=== PATIENT | male | born 1940 | race Caucasian/White ===

== ENCOUNTER 2018-01-03 00:03 | Emergency (ER) | payer MEDICARE ==
[~2018-01-03] VITALS: Ht 182.9 cm; Wt 88.5 kg
[2018-01-03] MEDS ORDERED: MELO15TA13 PO (00:25)
[2018-01-03] MEDS ORDERED: CARI350T PO (00:25)
[2018-01-03] MEDS ORDERED: TRAZ-182 PO (00:25)
[2018-01-03] MEDS ORDERED: HYDR-4354 PO (00:25)
--- NOTE | 2018-01-03 01:01 | NUR ---
DR. CULP AT BEDSIDE FOR MSE.
[2018-01-03 01:21] LABS: BASOPHILS % (AUTO) 0.5 % (0.0-2.0); EOSINOPHILS # (AUTO) 0.4 K/uL (0.0-0.7); HEMATOCRIT 42.3 % (36.7-47.1); HEMOGLOBIN 14.3 g/dL (12.5-16.3); LYMPHOCYTES # (AUTO) 0.6 K/uL (20.0-40.0); LYMPHOCYTES % (AUTO) 9.9 % (20.5-51.5); MEAN CORPUSCULAR HEMOGLOBIN 29.6 uug (23.8-33.4); MEAN CORPUSCULAR HGB CONC 34 g/dL (32.5-36.3); MEAN CORPUSCULAR VOLUME 87.4 fL (73.0-96.2); MONOCYTES # (AUTO) 0.4 K/uL (2.0-10.0); MONOCYTES % (AUTO) 7.3 % (0.0-11.0); NEUTROPHILS # (AUTO) 4.4 K/uL (1.8-8.9); NEUTROPHILS % (AUTO) 75.3 % (38.5-71.5); PLATELET COUNT (AUTO) 177 K/uL (152-348); RED BLOOD CELL COUNT(AUTO) 4.83 MIL/uL (4.06-5.63); WHITE BLOOD COUNT (AUTO) 5.8 K/uL (3.6-10.2)
[2018-01-03 01:46] LABS: ALANINE AMINOTRANSFERASE 33 U/L (16-63); ALKALINE PHOSPHATASE 75 U/L (50-136); ASPARTATE AMINOTRANSFERASE 22 U/L (15-37); BILIRUBIN,DIRECT < 0.1 mg/dL (0.0-0.2); BILIRUBIN,TOTAL 0.2 mg/dL (0.2-1.0); CARBON DIOXIDE 26 mmol/L (21-32); CHLORIDE 107 mmol/L (98-107); CREATININE 0.9 mg/dL (0.6-1.3); GLUCOSE 109 mg/dL (74-106); LIPASE 162 U/L (73-393); POTASSIUM 4.4 mmol/L (3.5-5.1); TOTAL PROTEIN, SERUM 6.6 g/dL (6.4-8.2); UREA NITROGEN, BLOOD 24 mg/dL (7-18)
[2018-01-03 02:04] LABS: *BILIRUBIN,URIN NEGATIVE (NEGATIVE); *BLOOD, URINE Trace-intact (NEGATIVE); *CLARITY,URINE CLEAR (CLEAR); *COLOR,URINE YELLOW (YELLOW); *KETONES,URINE 1+ (NEGATIVE); *PROTEIN,URINE NEGATIVE (NEGATIVE); *UROBILINOGEN,URINE 0.2 E.U./dl (NORMAL); LEUKOCYTE ESTERASE ,URINE NEGATIVE (NEGATIVE); NITRITE, URINE NEGATIVE (NEGATIVE); PH,URINE 5.5 (5.0-8.0); UGLUCOSE NEGATIVE (NEGATIVE)
[2018-01-03 02:25] LABS: BACTERIA,URINE NONE SEEN /HPF (NONE SEEN); MUCUS,URINE FEW /LPF (0-FEW); SQUAMOUS EPITHELIAL CELL,UR FEW /HPF (NONE SEEN); WBC,URINE 0-3 /HPF (0-3)
--- NOTE | 2018-01-03 02:47 | NUR ---
Patient discharged to home in stable conditon. Written and verbal after care instructions given. Patient verbalizes understanding of instructions. PATIENT LEFT WITH STABLE GAIT.
[2018-01-03 02:48] VITALS: BP 145/79
[2018-01-03] MEDS ORDERED: HYDROCODONE/APAP 5-325MG TABLET PO PRN (04:15)
[2018-01-03] MEDS ORDERED: HYDROCODONE/APAP 10-325 MG TABLET PO PRN (04:15)
[2018-01-03] MEDS ORDERED: ONDANSETRON 4 MG/2 ML VIAL IV PRN (04:15)
[2018-01-03] MEDS ORDERED: ACETAMINOPHEN 325 MG TABLET PO PRN (04:15)
[2018-01-03] MEDS ORDERED: MAGNESIUM HYDROXIDE 30 ML LIQUID UDC PO PRN (04:15)
[2018-01-03] MEDS ORDERED: Z GUARD REMEDY PASTE 57 GM TUBE TOP PRN (04:15)
[2018-01-03] MEDS ORDERED: Medication Not On Formulary EA (Meloxicam (Mobic) 15 MG) PO SCH (09:00)
[2018-01-03] MEDS ORDERED: CARISOPRODOL 350 MG TABLET PO SCH (09:00)
[2018-01-03] MEDS ORDERED: TRAZODONE 50 MG TABLET PO SCH (21:00)
== END 2018-01-03 02:48 | disposition home or self-care (01) ==
LOC: ER 00:05
DX: E86.0 Dehydration (principal); R10.9 Unspecified abdominal pain; R31.29 Other microscopic hematuria
CPT/HCPCS: 36415; 83690; 85025; 87086; A4663

== ENCOUNTER 2023-08-04 16:36 | Emergency (ER) | payer MEDICAID, MEDICARE ==
[~2023-08-04] VITALS: Ht 182.9 cm; Wt 86.2 kg
[~2023-08-04 16:36] MED LIST: CARI350T PO; HYDR-4354 PO; MELO15TA13 PO; TRAZ-182 PO
[2023-08-04] MEDS ORDERED: NEOMY/BACITRA/POLYMYXIN B OINT UD PACKET TP ONE (17:15)
[2023-08-04] MEDS: NEOMY/BACITRA/POLYMYXIN B OINT UD PACKET TP ONE (17:30)
[2023-08-04 17:40] VITALS: BP 140/99; O2SAT 98
== END 2023-08-04 17:47 | disposition home or self-care (01) ==
LOC: ER 17:44
DX: S61.411A Laceration without foreign body of right hand, initial encounter (principal); S80.12XA Contusion of left lower leg, initial encounter; Z98.890 Other specified postprocedural states; Z79.899 Other long term (current) drug therapy; W01.0XXA Fall on same level from slipping, tripping and stumbling without subsequent striking against object, initial encounter; Y93.89 Activity, other specified; Y92.89 Other specified places as the place of occurrence of the external cause; Y99.8 Other external cause status
CPT/HCPCS: A4606; A4663